=== PATIENT | female | born 1965 | race African-American/Black ===

== ENCOUNTER 2023-01-22 09:50 | Emergency (ER) | payer MEDICAID ==
[~2023-01-22] VITALS: Ht 160 cm; Wt 117.9 kg
[2023-01-22 10:23] VITALS: BP 140/90
== END 2023-01-22 11:35 | disposition home or self-care (01) ==
LOC: ER 09:51
DX: R22.42 Localized swelling, mass and lump, left lower limb (principal); M79.604 Pain in right leg; M79.605 Pain in left leg; K13.79 Other lesions of oral mucosa
CPT/HCPCS: 93971; 99284